=== PATIENT | male | born 2000 | race Caucasian/White ===

== ENCOUNTER 2023-12-24 20:53 | Emergency (ER) | payer OTHER | END 2023-12-24 22:52 | disposition home or self-care (01) | LOC: MADERS 20:53 | DX: J02.9 Acute pharyngitis, unspecified (principal); R05.9 Cough, unspecified; R09.81 Nasal congestion; R51.9 Headache, unspecified; R19.7 Diarrhea, unspecified | CPT/HCPCS: 87804; 99284 ==